=== PATIENT | female | born 1980 | race Caucasian/White ===

== ENCOUNTER 2018-11-11 06:33 | Inpatient (IN) ==
[2018-11-11] MEDS ORDERED: PITOCIN 30 UNITS/NS 30 UNIT/500 ML IV.SOLN IV SCH (07:00)
[2018-11-11] MEDS ORDERED: LR 1,000 ML IV SCH (07:00)
[2018-11-11] MEDS ORDERED: PITOCIN 20 UNITS/NS 20 UNITS/1,000 ML IV.SOLN ONE (07:35)
[2018-11-11 07:38] LABS: URINE SOURCE CATH
[2018-11-11 07:53] LABS: BILIRUBIN URINE NEGATIVE (NEGATIVE); BLOOD URINE NEGATIVE (NEGATIVE); CLARITY CLEAR (CLEAR); COLOR YELLOW; GLUCOSE URINE NEGATIVE (NEGATIVE); KETONE URINE 3+(Large) mg/dL (NEGATIVE); LEUKOCYTES URINE TRACE (NEGATIVE); NITRITE URINE NEGATIVE (NEGATIVE); PH URINE 6.5; PROTEIN URINE TRACE mg/dL (NEGATIVE); UROBILINOGEN URINE NORMAL
--- NOTE | 2018-11-11 07:53 | HISTORY AND PHYSICAL ---
CHIEF COMPLIANT: 1. Status post vaginal delivery at home. 2. Vaginal bleeding. 3. Pelvic pain. HISTORY OF PRESENT ILLNESS: The patient is a 38-year-old, G 3, now P 3-0-0-3, who delivered at home around 5 a.m. this morning and presented to labor and delivery with placenta in situ. Her was complicated by no care. She recently moved to [place] from [place]. She states that her water broke and she started louann, and did not have time to present to the hospital before the baby delivered. She delivered a viable baby boy who is currently in the nursery. She complains of abdominal pain and vaginal bleeding, and the placenta is still in situ. REVIEW OF SYSTEMS: No fevers. No chills. No nausea. No vomiting, chest pain, shortness of breath, diarrhea, constipation, dysuria, or rectal bleeding. PAST MEDICAL HISTORY: None. MEDICATIONS: None. ALLERGIES: No known drug allergies. PAST SURGICAL HISTORY: Cholecystectomy. FAMILY HISTORY: Noncontributory. SOCIAL HISTORY: She smokes 5 to 6 cigarettes a day. No alcohol or illegal drugs. PHYSICAL EXAMINATION: VITAL SIGNS: Vital signs stable. Afebrile. GENERAL: Awake, alert, and oriented. Slight distress. CARDIOVASCULAR: Regular rate and rhythm. No gallops, murmurs, or rubs. LUNGS: Clear to auscultation bilaterally. No wheezes, rales, or rhonchi. ABDOMEN: Positive bowel sounds. Soft. Tender to palpation. EXTREMITIES: No cyanosis, clubbing, or edema. GENITOURINARY: Perineum, umbilical cord noted, clamped at the end. PROCEDURE: The perineum was cleaned with Hibiclens. The placenta was delivered spontaneously without difficulty. There was a three-vessel cord. Bimanual exam was performed to remove any clots present. There was minimal bleeding post exam. ASSESSMENT: 1. Status post normal spontaneous vaginal delivery. 2. No care. 3. Vaginal bleeding, resolved. 4. Pelvic pain. PLAN: 1. Admit to labor and delivery for care. 2. UDS. 3. Pain control.
[2018-11-11 08:06] LABS: UR AMPHETAMINES QUAL PRESUMPTIVE POSITIVE (NONE DETECT); UR BARBITUATES QUAL NONE DETECTED (NONE DETECT); UR BENZODIAZEPIN QUAL NONE DETECTED (NONE DETECT); UR CANNABINOIDS QUAL NONE DETECTED (NONE DETECT); UR COCAINE QUAL NONE DETECTED (NONE DETECT); UR METHADONE QUAL NONE DETECTED (NONE DETECT); UR METHAMPHETAMINE QUAL PRESUMPTIVE POSITIVE (NONE DETECT); UR OPIATES QUAL NONE DETECTED (NONE DETECT); UR OXYCODONE QUAL NONE DETECTED (NONE DETECT); UR PCP QUAL NONE DETECTED (NONE DETECT); UR PROPOXYPHENE QUAL NONE DETECTED (NONE DETECT); UR TCA QUAL NONE DETECTED (NONE DETECT)
--- NOTE | 2018-11-11 08:33 | OB/GYN PROGRESS NOTE ---
Progress Note OB - . Patient Problems: Current Active Problems Problem Status Onset Intrauterine Acute OB Progress Note: Laboratory Results - last 24 hr 11/11/18 11/11/18 07:18 07:18 Urine Source CATH Urine Color YELLOW Urine Clarity CLEAR Urine pH 6.5 Ur Specific [place] 1.020 Urine Protein TRACE A Urine Ketones 3+(Large) A Urine Blood NEGATIVE Urine Nitrite NEGATIVE Urine Bilirubin NEGATIVE Urine Urobilinogen NORMAL Urine WBC TRACE A Urine Glucose NEGATIVE Urine Opiates Screen NONE DETECTED Ur Oxycodone Screen NONE DETECTED Urine Methadone Screen NONE DETECTED U Propoxyphene Qual NONE DETECTED Ur Barbituates Screen NONE DETECTED Ur Tricyclics Screen NONE DETECTED Ur Phencyclidine Scrn NONE DETECTED Ur Amphetamines Screen PRESUMPTIVE POSITIVE A U Methamphetamines Scrn PRESUMPTIVE POSITIVE A U Benzodiazepines Scrn NONE DETECTED Urine Cocaine Screen NONE DETECTED U Cannabinoids Screen NONE DETECTED Pt UDS positive for amp. She is refusing blood draws. BP elevated. She refuses any other treatment. She would like to leave. Pt leaving AMA. Papers given to sign.
== END 2018-11-11 11:25 | disposition left against medical advice (07) | DRG 776 ==
LOC: P.LD 06:33
PROVIDERS: ADMIT Obstetrics & Gynecology; ATTEND Obstetrics & Gynecology